=== PATIENT | female | born 1985 | race Caucasian/White ===

== ENCOUNTER 2022-05-21 06:39 | Inpatient (IN) | payer OTHER, SELFPAY ==
[2022-05-21] VITALS (236 sets, daily range): BP systolic 92–142; BP diastolic 28–115; PULSE 66–173; TEMP 36.6–38.1; O2SAT 92–100; BMI 31.8
--- NOTE | 2022-05-21 06:44 | P.HP_ITS ---
H&P: HPI History of Present Illness Date/Time: 05/21/22 06:44 Chief Complaint: term with mildly elevated blood pressure Narrative: 36-year-old multiparous and r39 weeks gestation for induction of labor secondary to increased blood pressure she had an GTT but did not a 3 that was followed with Normal 1 sugars which were. [facility] Family History Family History Father Acute myocardial infarction Mother Asthma Social History Social History Substance use: never Spiritual care concerns: No Meds Home Medications and Allergies Home Medications Medication Instructions Recorded Confirmed Type No Home Medications 05/01/22 05/01/22 History Allergies Allergy/AdvReac Type Severity Reaction Status Date / Time latex Allergy Swelling Verified 05/01/22 15:12 Exam Const: General: cooperative, healthy appearing and comfortable Nutritional Appearance: average body habitus Orientation/consciousness: oriented to person, oriented to place and oriented to time HENMT: Head: normal to inspection Resp: Effort & Inspection: normal respiratory effort Cardio: Rate: regular rate Rhythm: regular rhythm Heart sounds: S1 normal heart sound present and S2 normal heart sound present GI: Inspection: normal to inspection ( gravid soft uterus) : Speculum Exam - Cervix: normal appearance of the cervix ( cervix 3/ 50/-1. FHTs reassuring) Assessment and Plan Assessment and plan (1) Term : Code(s): Z34.90 - Encounter for supervision of normal , unspecified, unspecified trimester Status: Acute Plan medical induction of labor. Spontaneous vaginal delivery expected. She has an epidural candidate
--- NOTE | 2022-05-21 07:27 | LDADM ---
This patient, Rema Devine [facility], was admitted to Labor/Delivery/Recovery 108 on 05/21/22 at 06:39. Plans for labor, pain management and were discussed with patient. Patient/family oriented to hospital policies and general routines including ID bracelet, bed and alarms, visiting hours, pain management, procedures, bathroom and other care routines, personal items, smoking policy, room service/diet and guest tray routines, infant security routines, and visiting hours. Patient/Family are encouraged to report perceived risks to care and to ask questions if they do not understand what they are told or what they should do. See OBIX for further documentation.
[2022-05-21 07:40] LABS: Basophils Absolute Auto 0.1 K/mm3 (0.0-0.1); Basophils Percent Auto 0.7 % (0.2-1.2); Eosinophils Absolute Auto 0.2 K/mm3 (0-0.3); Eosinophils Percent Auto 1.8 % (0-4.4); Hematocrit 31.1 % (37.0-47.0); Hemoglobin 9.7 g/dL (12.0-15.0); Immature Granulocyte Absolute 0.07 K/mm3 (0.00-0.031); Immature Granulocyte Percent A 0.9 % (0-0.5); Lymphocytes Absolute Auto 1.78 K/mm3 (0.9-3.2); Lymphocytes Percent Auto 21.8 % (18.3-44.2); Mean Corpuscular HGB Conc 31.2 g/dl (32-36); Mean Corpuscular Hemoglobin 23.8 pg (26-34); Mean Corpuscular Volume 76.4 fl (80-100); Mean Platelet Volume 12.3 fl (7.4-10.4); Monocytes Absolute Auto 0.5 K/mm3 (0.1-0.6); Monocytes Percent Auto 6.2 % (2.6-8.5); Neutrophils Absolute Auto 5.6 K/mm3 (1.3-6.7); Neutrophils Percent Auto 68.6 % (45.5-73.1); Platelet Count Result 181 k/mm3 (150-375); Red Blood Count 4.07 M/mm3 (4.2-5.4); Red Cell Distribution Width 15.1 % (11.5-14.5); White Blood Count 8.2 K/mm3 (4.5-10.0)
[2022-05-21 07:51] LABS: Alanine Aminotransferase 19 U/L (6-35); Albumin Level 3.6 g/dL (3.5-5.1); Alkaline Phosphatase 260 U/L (38-126); Anion Gap 9 mmol/L (8-16); Aspartate Amino Transferase 19 U/L (14-36); Bilirubin,Total 0.5 mg/dL (0.2-1.3); Blood Urea Nitrogen 4 mg/dL (7-17); Calcium 8.5 mg/dL (8.4-10.2); Carbon Dioxide 21 mmol/L (22-30); Chloride 104 mmol/L (98-107); Estimated CRCL calculation 126 ml/min; Estimated Glomerular Filt Rate > 60; Glucose 95 mg/dL (65-110); Potassium 3.7 mmol/L (3.4-5.0); Sodium 134 mmol/L (137-145)
[2022-05-21 07:52] LABS: Uric Acid 3.5 mg/dL (2.5-7.5)
[2022-05-21] MEDS: OXYTOCIN 30 UNITS/NS 500 ML 30 UNITS/500 ML BAG IV CONT (09:00)
[2022-05-21] MEDS: LACTATED RINGERS 1,000 ML 125 ML IV CONT ×4 (09:01→22:35)
[2022-05-21] MEDS: SODIUM CHLORIDE 0.9% IV 300 ML 600 ML I-UTERINE (12:25)
--- NOTE | 2022-05-21 12:53 | PM.OBPNLAB ---
Pain Control Date/time seen: 05/21/22 12:53 Pain control: tolerating well and epidural Pelvic Exam Dilation (cm): 4 Effacement (%): 50 station: -2 Amniotic membrane status: Leaking Contractions Monitor mode: Internal
[2022-05-21 13:28] LABS: Rapid Plasma Reagin Non-Reactive (NonReactive)
--- NOTE | 2022-05-21 16:09 | PM.OBPNLAB ---
Pain Control Date/time seen: 05/21/22 16:09 Pain control: tolerating well and epidural Pelvic Exam Dilation (cm): 5 Effacement (%): 60 station: -2 Amniotic membrane status: Leaking Contractions Monitor mode: Internal
[2022-05-21] MEDS: SODIUM CHLORIDE 0.9% IV 1,000 ML 150 ML I-UTERINE (21:00)
[2022-05-22] VITALS (204 sets, daily range): BP systolic 64–146; BP diastolic 47–111; PULSE 65–142; RESP 13–21; TEMP 36.3–38.1; O2SAT 93–100
[2022-05-22] MEDS: AMPICILLIN 2 GM/NS 100 ML 2 GM/100 ML BAG IVPB (00:35)
[2022-05-22] MEDS: AMPICILLIN 1 GM/NS 50 ML 1 GM/50 ML BAG IVPB ×2 (05:03→08:24)
--- NOTE | 2022-05-22 05:25 | PM.OBPNLAB ---
Pain Control Date/time seen: 05/22/22 05:25 Pain control: tolerating well and epidural Pelvic Exam Dilation (cm): 10 Effacement (%): 100 station: -1 Amniotic membrane status: Leaking Contractions Monitor mode: Internal
[2022-05-22] MEDS: LACTATED RINGERS 1,000 ML 125 ML IV CONT (08:28)
[2022-05-22] MEDS: ONDANSETRON INJ 4 MG/2 ML VIAL IV PUSH (08:57)
--- NOTE | 2022-05-22 09:49 | P.PNAN_ITS ---
Anes - Initial Pre Proc Eval Procedure: Operation Date: 05/22/22 10:00 Proposed Procedures p Section - Raphael Mantilla MD Date/Time: 05/22/22 09:49 Surgeon: Raphael Mantilla MD Pre Op Diagnosis: IOL Patient Data Age: 36 Gender: F Height: 1.57 m Weight: 79 kg Last Vital Signs Temp 37.7 C H 05/22/22 09:00 Pulse 82 05/22/22 09:45 BP 131/74 05/22/22 09:45 Pulse Ox 99 05/22/22 09:47 O2 Del Method Room Air 05/21/22 07:26 Allergies Allergy/AdvReac Type Severity Reaction Status Date / Time latex Allergy Hives Verified 05/21/22 07:33 Home Medications Medication Instructions Recorded Confirmed Type No Home Medications 05/01/22 05/21/22 History Laboratory Tests 05/21/22 07:05 RPR Non-reactive (NonReactive) Patient hx anesthesia problems: none Family hx anesthesia problems: none Results Review: All pre-operative results and documents have been reviewed as part of the pre- operative evaluation. [facility] Surgical History Surgical History (Updated 05/22/22 @ 09:49 by Raphael Mike MD) History of cholecystectomy Family History Family History Father Acute myocardial infarction Mother Asthma Social History Social History Smoking status: Never smoker Second hand tobacco smoke exposure: No Substance use: never Lack of Transportation: No Lack of Food: Never True Current Housing: I Have Housing Concerned About Future Housing: No Difficulty Paying Gas/Electric Bills: No Difficulty Paying for Meds: No Currently Unemployed: No Education: Associate Degree Difficulty w/ Childcare or Family Care: No Spiritual care concerns: No Anes - Eval Final PreProcedure Day of Procedure 05/22/22 09:49 Patient weight: obese Heart: regular rate and rhythm Lungs: clear to auscultation Airway: Mallampati scale class II Neurological: alert and oriented Last oral intake: >/= 8 hours ASA classification: II Emergent: no Anesthetic plan: proceed Anesthesia type and monitoring: regional epidural and standard monitoring Results Review: All pre-operative results and documents have been reviewed as part of the pre- operative evaluation. Informed Consent: The patient's anesthetic plan and its attendant risks and benefits were discussed with the patient/family/POA. Questions were solicited and answers provided to the satisfaction of the patient/family/POA.
--- NOTE | 2022-05-22 10:04 | WPDHPUPDATE1 ---
History and Physical Update Update Date/Time: 05/22/22 10:04 History and Physical has been reviewed, including an updated exam of the patient. There are NO changes in the patient's condition. Risks, benefits, and alternatives have been discussed and questions answered. Patient agrees to proceed with procedure.
--- NOTE | 2022-05-22 10:05 | WPDHPUPDATE1 ---
History and Physical Update Update Date/Time: 05/22/22 10:05 History and Physical has been reviewed, including an updated exam of the patient. There are NO changes in the patient's condition. Risks, benefits, and alternatives have been discussed and questions answered. Patient agrees to proceed with procedure.
[2022-05-22] MEDS: ceFAZolin 2 GM/D5W 50 ML 2 GM/50 ML BAG IVPB (10:07)
--- NOTE | 2022-05-22 10:47 | W.PM.PROC2 ---
Procedure Note - Detailed Date of Procedure 05/22/22 Pre-op Diagnosis IOL Failure to progress /gestational hypertension Post-op Diagnosis Same Procedure Performed primary low-transverse section Surgeon Raphael Mantilla MD Anesthesia Epidural Indications is the 36-year-old multiparous patient admitted for induction of labor at term secondary to elevated blood pressures. At 8cm had thick meconium fluid baby did not tolerate labor well and could not progress beyond 8cm she was offered low-transverse section Findings male infant of 7lb 13oz Apgars 8 and 8 Description of Procedure patient was prepped draped in sterile fashion placed in supine position. Under excellent epidural anesthesia the eye was entered in Pfannenstiel fashion progressive layers of fascia. Fascia incised midline carried in upward outward fashion bilaterally. Underlying muscles sharply dissected parietal peritoneum entered by Silvia clamps. This was carried superiorly and inferiorly dome of bladder. Bladder blade placed bladder flap formed bladder blade returned. A low-transverse incision made head delivered the ANANDA position. Nuchal cord checked noted be loose x1 read [place] occiput. Anterior posterior shoulder delivered spontaneously. Cord clamped x2 and cut infant passed off the table with a good cry and given Apgars of 8 [id number] and 8 [id number]. Cord blood was drawn. Placenta delivered intact manually. Uterus delivered from the abdomen after assuring no membranes or debris remained in the uterus. The uterus was closed with continuous running 0 Vicryl from lateral edge to lateral edge. This was followed by a 2nd imbricating running locking 0 Vicryl from lateral edge to lateral edge. Hemostasis was assured. The ovaries and tubes appeared within normal limits. A small 1cm fibroid was at the fundus on the left. The uterus returned the abdomen. The abdomen cleaned of debris and laps removed and accounted for. Uterine incision inspected 1 last time noted be hemostatic. The incision of the fascia was closed with continuous running 0 Vicryl from lateral edge to midline bilaterally. Irrigation subcutaneous layer the skin closed with 4-0 Monocryl and glue. The patient tolerated procedure well and went to recovery in satisfactory condition. All sponge, needle, instrument counts were correct. There were no immediate complications noted Estimated Blood Loss 450 Drains No Packing No Pathology None sent Complications No immediate complications Condition Stable Disposition PACU
[2022-05-22] MEDS: fentaNYL CITRATE INJ (*CRX) 100 MCG/2 ML VIAL 25 MCG IV PUSH (11:35)
[2022-05-22] MEDS: KETOROLAC 30 MG/ML VIAL (*BKC) IV PUSH (12:58)
[2022-05-22] MEDS: SIMETHICONE 80 MG TAB.CHEW PO ×3 (13:40→19:45)
[2022-05-22] MEDS: HYDROcodone/acetaminophen (*CRX) 10-325 MG TABLET 1 TAB PO ×2 (14:50→19:45)
[2022-05-22] MEDS: DEXTROSE 5%/0.45% SOD CHL 1,000 ML 125 ML IV CONT (15:42)
--- NOTE | 2022-05-22 16:34 | OBPPTRN ---
1318-Patient transferred to post room #285 via wheelchair. Support person present. Oriented to unit, room, information board, rooming in, admission packet and security measures. Patient verbalizes understanding.
--- NOTE | 2022-05-22 16:37 | PM.DS ---
DS: Admitting Diagnosis Discharge Date 05/24/2022 Admitting Diagnosis Term /gestational hypertension / anemia DS: Discharge Diagnosis Discharge Diagnosis (1) Term : Code(s): Z34.90 - Encounter for supervision of normal , unspecified, unspecified trimester Status: Acute (2) Gestational hypertension: Code(s): O13.9 - Gestational [-induced] hypertension without significant proteinuria, unspecified trimester Status: Acute (3) Anemia: Code(s): D64.9 - Anemia, unspecified Status: Acute DS: Summary Hospital Course Reason for hospitalization: Patient was admitted for induction of labor at term secondary to elevated blood pressures Hospital Course: Patient underwent an extended induction of labor which could result in section secondary to failure to progress. Her hospital course thereafter was unremarkable. She remained afebrile. She was up, ambulating, eating regular diet, voiding without difficulty, in general without complaints. the patient did receive 2 3units of blood. Hemoglobin was 7 9 postop day 2 she was up, voiding without difficulty complaints hemostat dynamically stable Time Spent with Patient Time attestation: Total time spent providing and/or coordinating discharge services: Exam Const: General: cooperative, healthy appearing, comfortable and well groomed Orientation/consciousness: oriented to person, oriented to place and oriented to time Resp: Effort & Inspection: normal respiratory effort Cardio: Rate: regular rate Rhythm: regular rhythm Heart sounds: S1 normal heart sound present and S2 normal heart sound present GI: Inspection: normal to inspection (Fundus firm below the umbilicus) and incision (Wound is clean drain intact) Auscultation: normal bowel sounds Discharge Plan Discharge Attending physician on discharge: Raphael Hagan Discharging Clinician: Raphael Hagan Patient Disposition: Home, Self-Care Activity: may shower, no straining and pelvic rest Diet: heart healthy Wound Care Instructions: follow printed instructions Patient Instructions: Antibiotic Form Stand Alone Forms: General Discharge Information Follow-up/Referrals: Raphael Hagan MD [Physician] - Discharge Medications: New hydrocodone-acetaminophen 5-325 mg tablet 1 tablet PO Q4H PRN (Reason: pain) Qty: 30 0RF Date of admission: 05/21/22 06:39 Primary Care Provider: AtiyaLuna Admitting Provider: Raphael Hagan Attending physician on admission: Raphael Hagan Condition: Stable
[2022-05-22] MEDS: SIMETHICONE 80 MG TAB.CHEW (17:23)
[2022-05-22] MEDS: DOCUSATE SODIUM 100 MG CAPSULE PO (17:23)
[2022-05-22] MEDS: POLYSACCHARIDE IRON COMPLEX 150 MG CAPSULE PO (17:24)
[2022-05-23] VITALS (17 sets, daily range): BP systolic 93–137; BP diastolic 53–99; PULSE 77–130; RESP 16–22; TEMP 36–37.2; O2SAT 80–100
[2022-05-23] MEDS: KETOROLAC 30 MG/ML VIAL (*BKC) IV PUSH (02:05)
[2022-05-23 05:41] LABS: Basophils Percent Auto 0.2 % (0.2-1.2); Eosinophils Percent Auto 0.4 % (0-4.4); Immature Granulocyte Absolute 0.04 K/mm3 (0.00-0.031); Immature Granulocyte Percent A 0.4 % (0-0.5); Lymphocytes Absolute Auto 1.18 K/mm3 (0.9-3.2); Lymphocytes Percent Auto 11.9 % (18.3-44.2); Mean Corpuscular HGB Conc 30.7 g/dl (32-36); Mean Corpuscular Hemoglobin 23.3 pg (26-34); Mean Corpuscular Volume 75.8 fl (80-100); Mean Platelet Volume 11.5 fl (7.4-10.4); Monocytes Absolute Auto 0.5 K/mm3 (0.1-0.6); Monocytes Percent Auto 5.1 % (2.6-8.5); Neutrophils Absolute Auto 8.1 K/mm3 (1.3-6.7); Platelet Count Result 154 k/mm3 (150-375); Red Blood Count 2.15 M/mm3 (4.2-5.4); Red Cell Distribution Width 15.2 % (11.5-14.5); White Blood Count 9.9 K/mm3 (4.5-10.0)
[2022-05-23 05:48] LABS: Hematocrit 16.3 % (37.0-47.0)
--- NOTE | 2022-05-23 06:09 | PM.OBPNVD ---
OB - PN: Subj Subjective Date/time seen: 05/23/22 06:09 Patient comments: no complaints and pain well controlled baby status: doing well and nursing well OB - PN: Obj Data Labs 05/23/22 04:22 05/21/22 07:06 Labs: Laboratory Results - last 24 hr 05/23/22 04:22 WBC 9.9 RBC 2.15 L Hgb 5.0 L* D Hct 16.3 L* MCV 75.8 L MCH 23.3 L MCHC 30.7 L RDW 15.2 H Plt Count 154 MPV 11.5 H Immature Gran % (Auto) 0.4 Neut % (Auto) 82.0 H Lymph % (Auto) 11.9 L [place] % (Auto) 5.1 Eos % (Auto) 0.4 Baso % (Auto) 0.2 Lymph # (Auto) 1.18 [place] # (Auto) 0.5 Eos # (Auto) 0.0 Baso # (Auto) 0.0 Abs Immat Gran (auto) 0.04 H Absolute Neuts (auto) 8.1 H Absolute Nucleated RBC 0.0 Nucleated RBC % 0.0 OB - PN A/P Plan day: 1 Plan: other ( anemia) Comments: offered patient blood replacement. Time Spent With Patient Time: Total time spent is greater than 50% in coordination of care (as documented) at patient's floor/unit and/or counseling patient: Time with patient: less than 15 minutes Exam Const: General: cooperative, healthy appearing and comfortable Nutritional Appearance: average body habitus Orientation/consciousness: oriented to person, oriented to place and oriented to time HENMT: Head: normal to inspection Resp: Effort & Inspection: normal respiratory effort Cardio: Rate: regular rate Rhythm: regular rhythm Heart sounds: S1 normal heart sound present and S2 normal heart sound present GI: Inspection: normal to inspection ( fundus firm below umbilicus) and incision ( wound clean dry and intact)
[2022-05-23] MEDS: DOCUSATE SODIUM 100 MG CAPSULE PO ×2 (06:53→17:34)
[2022-05-23] MEDS: SIMETHICONE 80 MG TAB.CHEW PO (06:53)
[2022-05-23] MEDS: HYDROcodone/acetaminophen (*CRX) 10-325 MG TABLET 1 TAB PO ×2 (06:54→11:37)
[2022-05-23] MEDS: POLYSACCHARIDE IRON COMPLEX 150 MG CAPSULE PO ×2 (06:54→17:34)
[2022-05-23] MEDS: MULTIVIT/MIN/PREN/FOL AC/IRON TABLET 1 TAB PO (06:54)
--- NOTE | 2022-05-23 08:20 | WPDANLDPN2 ---
Anes-Prog Note L&D Date/Time: 05/23/22 08:20 Comfortable throughout: labor and section Neuraxial method: epidural Epidural/Spinal procedure site: clean & non-tender Neuro status: Neuro function grossly intact. Cardiovascular status: normal Respiratory status: normal Airway patency: baseline Mental status: baseline Post-Op hydration status: normal Vital Signs: Last Vital Signs Temp 36.4 C 05/23/22 04:30 Pulse 107 H 05/23/22 04:30 Resp 16 05/23/22 04:30 BP 110/63 05/23/22 04:30 Pulse Ox 100 05/23/22 04:30 O2 Del Method Room Air 05/23/22 04:30 Pain score (VAS): 0 I/O: Intake & Output 05/22/22 05/23/22 05/23/22 23:59 07:59 15:59 Intake Total 2040 1200 Output Total 550 1100 Balance 1490 100 Patient feedback: Patient satisfied with anesthetic care.
--- NOTE | 2022-05-23 08:20 | WPDANLDNPN2 ---
Anes-Prog Note L&D-Neuraxial Date/Time: 05/23/22 08:20 Patient feedback: Patient satisfied with post-operative pain management.
[2022-05-23] MEDS: SODIUM CHLORIDE 0.9% IV 250 ML 30 ML IV CONT (08:37)
[2022-05-23] MEDS: IBUPROFEN 600 MG TABLET PO ×3 (08:44→21:23)
[2022-05-23] MEDS: HYDROcodone/acetaminophen (*CRX) 5-325 MG TABLET 1 TAB PO ×3 (14:42→21:25)
--- NOTE | 2022-05-23 15:20 | PC.NURSE ---
Pt passed a 142 cc clot in the BSC when she got up to urinate. No c/o dizziness. Pt states she feels better this afternoon.
--- NOTE | 2022-05-23 16:31 | PC.NURSE ---
[id number] Introductions were made, then consulted with patient to assess needs related to . Mother discussed how the feeding has been going stating she is combo feeding along with her past history with her other children and the supplementation that has been chosen and why so far. Resources provided for inpatient and outpatient services with the feeding sheet, mom/baby guide and name written on the white board. Mother voiced understanding of information and is willing to receive assistance for at this time. Mother is happy with how well this infant is doing which is better than the last two. Reviewed the importance of skin to skin, stimulating infant with massage touch, burping, checking the diaper and possibly hand expression to encourage to wake and breastfeed. Infant optimally latched to the left breast using football positioning and effectively breast fed for 8-10 minutes, then was placed to the right breast after a moment of upright skin to skin and feeding cues were visualized. latched optimally for a few minutes, then fell asleep and would not latch again. While infant is skin to skin we discussed protecting the milk supply with pumping if her infant receives bottles and doesn't breastfeed. Reviewed the risks and benefits of supplementing related to the possibility of delayed milk related to her blood loss requiring a blood transfusion after her primary section. Encouraged skin to skin, stimulating infant if doesn't wake to breastfeed if it has been 2-2.5 hours, to call if infant will not wake to breastfeed or if there's pain with the latch. Reminded mother to pump at least 8 times in 24 hours 1-2 times at night to protect the milk supply if is not balancing it with self care to rest, eat/drink well asking for assistance as needed. Mother voiced understanding of information, when and how to call for assistance if needed.
[2022-05-24] MEDS: IBUPROFEN 600 MG TABLET PO (04:50)
[2022-05-24 05:21] LABS: Basophils Absolute Auto 0.1 K/mm3 (0.0-0.1); Basophils Percent Auto 0.6 % (0.2-1.2); Eosinophils Absolute Auto 0.3 K/mm3 (0-0.3); Eosinophils Percent Auto 2.3 % (0-4.4); Hematocrit 23.9 % (37.0-47.0); Hemoglobin 7.9 g/dL (12.0-15.0); Immature Granulocyte Absolute 0.09 K/mm3 (0.00-0.031); Immature Granulocyte Percent A 0.8 % (0-0.5); Lymphocytes Absolute Auto 1.52 K/mm3 (0.9-3.2); Lymphocytes Percent Auto 14.1 % (18.3-44.2); Mean Corpuscular HGB Conc 33.1 g/dl (32-36); Mean Corpuscular Hemoglobin 26.8 pg (26-34); Mean Platelet Volume 11.6 fl (7.4-10.4); Monocytes Absolute Auto 0.6 K/mm3 (0.1-0.6); Monocytes Percent Auto 5.4 % (2.6-8.5); Neutrophils Absolute Auto 8.3 K/mm3 (1.3-6.7); Neutrophils Percent Auto 76.8 % (45.5-73.1); Platelet Count Result 148 k/mm3 (150-375); Red Blood Count 2.95 M/mm3 (4.2-5.4); Red Cell Distribution Width 15.8 % (11.5-14.5); White Blood Count 10.8 K/mm3 (4.5-10.0)
--- NOTE | 2022-05-24 05:31 | PM.OBPNVD ---
OB - PN: Subj Subjective Date/time seen: 05/24/22 05:31 Patient comments: no complaints and pain well controlled baby status: doing well and nursing well OB - PN: Obj Data Labs 05/24/22 04:46 05/21/22 07:06 Labs: Laboratory Results - last 24 hr 05/21/22 05/23/22 05/24/22 07:05 04:22 04:46 WBC 9.9 10.8 H RBC 2.15 L 2.95 L Hgb 5.0 L* D 7.9 L Hct 16.3 L* 23.9 L MCV 75.8 L 81.0 D MCH 23.3 L 26.8 D MCHC 30.7 L 33.1 RDW 15.2 H 15.8 H Plt Count 154 148 L MPV 11.5 H 11.6 H Immature Gran % (Auto) 0.4 0.8 H Neut % (Auto) 82.0 H 76.8 H Lymph % (Auto) 11.9 L 14.1 L [place] % (Auto) 5.1 5.4 Eos % (Auto) 0.4 2.3 Baso % (Auto) 0.2 0.6 Lymph # (Auto) 1.18 1.52 [place] # (Auto) 0.5 0.6 Eos # (Auto) 0.0 0.3 Baso # (Auto) 0.0 0.1 Abs Immat Gran (auto) 0.04 H 0.09 H Absolute Neuts (auto) 8.1 H 8.3 H Absolute Nucleated RBC 0.0 0.0 Nucleated RBC % 0.0 0.0 % Immature Plt Fraction 9.0 Blood Type O Positive Antibody Screen Negative Crossmatch See Detail OB - PN A/P Plan day: 2 Plan: routine care, discharge home and follow up 6 weeks (4) Comments: hemodynamically stable this morning with hemoglobin of 7 point Time Spent With Patient Time: Total time spent is greater than 50% in coordination of care (as documented) at patient's floor/unit and/or counseling patient: Time with patient: less than 15 minutes Exam Const: General: cooperative, healthy appearing and comfortable Nutritional Appearance: average body habitus Orientation/consciousness: oriented to person, oriented to place and oriented to time HENMT: Head: normal to inspection Resp: Effort & Inspection: normal respiratory effort Cardio: Rate: regular rate Rhythm: regular rhythm Heart sounds: S1 normal heart sound present and S2 normal heart sound present GI: Inspection: normal to inspection and incision ( clean dry and intact)
[2022-05-24 08:05] VITALS: BP 103/70; PULSE 77; RESP 16; TEMP 36.4; O2SAT 99
[2022-05-24] MEDS: POLYSACCHARIDE IRON COMPLEX 150 MG CAPSULE PO (09:10)
[2022-05-24] MEDS: MULTIVIT/MIN/PREN/FOL AC/IRON TABLET 1 TAB PO (09:11)
[2022-05-24] MEDS: DOCUSATE SODIUM 100 MG CAPSULE PO (09:11)
[2022-05-24] MEDS: HYDROcodone/acetaminophen (*CRX) 5-325 MG TABLET 1 TAB PO (09:11)
--- NOTE | 2022-05-24 15:52 | PC.NURSE ---
[id number] Mother led the conversation with her experience and plan to feed her so far and her ability to independently latch optimally without discomfort and she also supplements with formula. Reminded parents to use good handwashing technique to prevent infection. Mother is feeding appropriately for growth of and understands stimulating to eat if needed. has had appropriate feedings in the last 24 hours meets the outcomes for weight, output and jaundice at this time. Mother states she is confident to continue effectively feeding her infant at home, when to call for assistance and denies any additional assistance or education at this time. Mother voiced understanding of the possible delay of her milk coming to full volume and that her experience is going so much better with this than with the last two. Reinforced understanding of milk production, transition of milk, signs of adequate intake, transition of stool, prevention/relief of engorgement, responsive watching for feeding cues, the different methods of stimulating to breastfeed 2-3 hours after the start of the last feeding, community resources, and when to call a provider using the resource of the mom and baby guide. Mother voiced understanding of the education shared. Reported to the primary RN.
[2022-05-25 09:23] VITALS: BP 119/68; PULSE 76; RESP 18; TEMP 36.8; O2SAT 100
== END 2022-05-24 12:45 | disposition home or self-care (01) | DRG 787 ==
LOC: ANHLDR 05-22 10:09 → ANHOB2 05-22 13:32
PROVIDERS: Admitting Provider Obstetrics & Gynecology; PCP Physician Assistant; Visit Provider Obstetrics & Gynecology
PROC: 10D00Z1 Extraction of Products of Conception, Low, Open Approach (ICD-10-PCS; CPT 59514; principal; 2022-05-22 10:00)
DX: O13.4 Gestational [pregnancy-induced] hypertension without significant proteinuria, complicating childbirth (principal); O75.2 Pyrexia during labor, not elsewhere classified; O62.2 Other uterine inertia; O77.0 Labor and delivery complicated by meconium in amniotic fluid; O69.81X0 Labor and delivery complicated by cord around neck, without compression, not applicable or unspecified; O99.02 Anemia complicating childbirth; Z3A.40 40 weeks gestation of pregnancy; Z37.0 Single live birth; Z90.49 Acquired absence of other specified parts of digestive tract
CPT/HCPCS: 36415; 36430; 80053; 84550; 85025; 85055; 86592; 86850; 86900; 86901; 86923; A9270; J0131; J0290; J0456; J0690; J1885; J2274; J2370; J2405; J2590; J2795; J3010; J7030; J7050; J7120; P9016

== ENCOUNTER 2022-06-14 23:09 | Emergency (ER) | payer OTHER, SELFPAY ==
--- NOTE | ~2022-06-14 | CT_ITS ---
EXAMINATION: CT abdomen pelvis w con INDICATION: Vaginal bleeding and pelvic pain, three weeks TECHNIQUE: Computed tomographic images of the abdomen and pelvis were obtained after the administrati on of 100 cc of Omnipaque 350 intravenous contrast. The dose-length product (DLP) was 532.12 mGy-cm. Automated exposure control and iterative reconstruction technique were employed. COMPARISON: None available FINDINGS: Minimal dependent atelectasis is present in the lung bases. The heart size is normal. The g allbladder is surgically absent. The liver, spleen, pancreas, and adrenal glands are normal. 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 Cysts of the kidneys measure up to 8 mm on the right. No pa thologically enlarged abdominal or pelvic lymph nodes are identified. No free intraperitoneal gas or evidence of bowel obstruction. The appendix is normal. Changes of recent section are noted. There is hyperattenuating material in the endometrial canal. There is a 12 mm area of enhancement in the lower aspect of the uterus on the right near the section defect. There is a small amount of mildly hyperattenuating fluid situated between the uterus and bladder near the section d efect. IMPRESSION: 1. 12 mm area of enhancement at the right lateral margin of the section defect with hyperatt enuating fluid in the endometrium and anterior to the uterus. Finding could reflect a small pseudoane urysm. Follow-up CTA has been completed at the time of interpretation. 2. 1.4 cm splenic artery aneurysm. Reviewed, dictated and finalized at location A. IMPRESSION: 1. 12 mm area of enhancement at the right lateral margin of the sectio n defect with hyperattenuating fluid in the endometrium and anterior to the morelia jimmie. 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 Follow-up CTA has been compl eted at the time of interpretation. 2. 1.4 cm splenic artery aneurysm.
--- NOTE | ~2022-06-14 | CT_ITS ---
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 Maximum intensity projection 3D-reconstructions of the aorta and other arteries were constructed by the technologist on a separate workstation. The dose-length produ ct (DLP) was 493.00 mGy-cm. Automated exposure control and iterative reconstruction technique were em ployed. 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 There is no aneurysm or dissection of the abdominal aorta. The superior mesenteric artery and inferi or mesenteric artery are normal at their origin. 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 There are single renal arteries bilaterally. 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 Minimal dependent atelectasis is present in the lung bases. The heart size is normal. The liver, sple en, pancreas, and adrenal glands are normal. The gallbladder is surgically absent. Cysts of the kidne ys measure up to 8 mm on the right. No pathologically enlarged abdominal or pelvic lymph nodes are id entified. No free intraperitoneal gas or evidence of bowel obstruction. A small amount of hyperattenu ating material is again noted in the endometrial canal and situated between the section defe ct and urinary bladder. There is a small amount of inflammatory change in the pelvis. IMPRESSION: 1. 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 2. 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 Reviewed, dictated and finalized at location A. IMPRESSION: 1. 12 mm pseudoaneurysm at the right lateral margin of the section def ect. 2. 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
[2022-06-14 23:11] VITALS: BP 124/74; PULSE 75; RESP 17; TEMP 36.5; O2SAT 100
--- NOTE | 2022-06-14 23:55 | ED.FEMALEGU ---
HPI - Female Genitourinary General Chief complaint: Vaginal Bleeding Stated complaint: vaginal bleeding Time Seen by Provider: 06/14/22 23:24 History of Present Illness HPI Narrative: Patient is a 36-year-old at 4 weeks presenting with vaginal bleeding. Patient states that she had a approximately 3-1/2 to 4 weeks ago. States that she did experience a hemorrhage and required blood transfusions while in the hospital. States that she has had some intermittent vaginal bleeding over the last 4 weeks but tonight she suddenly had a large gush of blood that filled the toilet bowl. States that she has had some worsening pelvic cramping as well. States that her [employer]IST[employer] was unable to get her in until Friday. She denies lightheadedness, chest pain, shortness of breath, nausea or vomiting, lower back pain. Related Data Allergies Allergy/AdvReac Type Severity Reaction Status Date / Time latex Allergy Hives Verified 06/15/22 00:00 Review of Systems Review of Systems: All systems reviewed & are unremarkable except as noted in HPI and below PMFSH Surgical History Surgical History History of cholecystectomy Family History Family History Father Acute myocardial infarction Mother Asthma Social History Social History Smoking status: Never smoker Second hand tobacco smoke exposure: No Substance use: never Lack of Transportation: No Lack of Food: Never True Current Housing: I Have Housing Concerned About Future Housing: No Difficulty Paying Gas/Electric Bills: No Difficulty Paying for Meds: No Currently Unemployed: No Education: Associate Degree Difficulty w/ Childcare or Family Care: No Spiritual care concerns: No Exam Narrative: GENERAL: Well-appearing, well-nourished, and in no acute distress. HEAD: Normocephalic, atraumatic. EYES: PERRLA and EOMI. ENT: Nares clear, no rhinorrhea or epistaxis. Mucous membranes moist. NECK: Supple. CHEST: Clear to auscultation. No respiratory distress. HEART: Regular rate and rhythm. Normal peripheral pulses. ABDOMEN: Soft, + left lower quadrant and suprapubic tenderness, no guarding or rebound EXTREMITIES: Normal range of motion. No edema. SKIN: Warm, dry, no rash. NEURO: No focal deficits. Alert and oriented x3. PSYCH: Normal mood and affect. Course Vital Signs Vital signs: Vital Signs Temperature 97.7 F 06/14/22 23:11 Pulse Rate 75 06/14/22 23:11 Respiratory Rate 17 06/14/22 23:11 Blood Pressure 124/74 06/14/22 23:11 Pulse Oximetry 100 06/14/22 23:11 Oxygen Delivery Room Air 06/14/22 23:11 Temperature 97.7 F 06/14/22 23:11 Pulse Rate 72 06/15/22 07:29 Respiratory Rate 18 06/15/22 07:29 Blood Pressure 118/73 06/15/22 07:29 Pulse Oximetry 98 06/15/22 07:29 Oxygen Delivery Room Air 06/14/22 23:11 MDM - Female Genitourinary MDM Narrative Medical decision making narrative: Patient is a 36-year-old female presenting with vaginal bleeding in the setting. Vitals are within normal limits. Patient is nontoxic and in no acute distress. Exam is remarkable for the above. Plan for blood work, CT abdomen pelvis. Hemoglobin is stable at 10.4. CT abdomen pelvis is concerning for a pseudoaneurysm involving the uterine artery. I spoke with Dr. Romo who agrees with obtaining a CTA to better evaluate the pelvic arteries. 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 I spoke with Dr. Gomez with [facility] and she has accepted the patient for transfer. Patient has remained hemodynamically stable while in the department. Spoke with the patient and her regarding the work-up and they are agreeable with transfer. Differential Diagnosis Differential diagnosi
[2022-06-14 23:56] VITALS: PULSE 73; RESP 15
[2022-06-14 23:57] VITALS: BP 122/82; PULSE 71; RESP 12
[2022-06-15] VITALS (17 sets, daily range): BP systolic 91–124; BP diastolic 53–91; PULSE 70–98; RESP 11–20; O2SAT 98–100
[2022-06-15 00:13] LABS: Basophils Absolute Auto 0.1 K/mm3 (0.0-0.1); Basophils Percent Auto 1.5 % (0.2-1.2); Eosinophils Absolute Auto 0.3 K/mm3 (0-0.3); Eosinophils Percent Auto 4.7 % (0-4.4); Hematocrit 33.1 % (37.0-47.0); Hemoglobin 10.4 g/dL (12.0-15.0); Immature Granulocyte Absolute 0.02 K/mm3 (0.00-0.031); Immature Granulocyte Percent A 0.4 % (0-0.5); Lymphocytes Absolute Auto 1.78 K/mm3 (0.9-3.2); Lymphocytes Percent Auto 33.1 % (18.3-44.2); Mean Corpuscular HGB Conc 31.4 g/dl (32-36); Mean Corpuscular Hemoglobin 26.1 pg (26-34); Mean Platelet Volume 10.2 fl (7.4-10.4); Monocytes Absolute Auto 0.4 K/mm3 (0.1-0.6); Monocytes Percent Auto 6.9 % (2.6-8.5); Neutrophils Absolute Auto 2.9 K/mm3 (1.3-6.7); Neutrophils Percent Auto 53.4 % (45.5-73.1); Platelet Count Result 246 k/mm3 (150-375); Red Blood Count 3.99 M/mm3 (4.2-5.4); Red Cell Distribution Width 15.9 % (11.5-14.5); White Blood Count 5.4 K/mm3 (4.5-10.0)
[2022-06-15 00:16] LABS: INR 1.1; Prothrombin Time 14.1 Seconds (11.1-14.7)
[2022-06-15 04:32] LABS: Anion Gap 5 mmol/L (8-16); Blood Urea Nitrogen 11 mg/dL (7-17); Calcium 8.5 mg/dL (8.4-10.2); Carbon Dioxide 29 mmol/L (22-30); Chloride 104 mmol/L (98-107); Estimated CRCL calculation 121 ml/min; Estimated Glomerular Filt Rate > 60; Glucose 93 mg/dL (65-110); Potassium 3.9 mmol/L (3.4-5.0); Sodium 138 mmol/L (137-145)
--- NOTE | 2022-06-15 08:11 | PC.NURSE ---
Ana Mata accepted ALS transfer to [facility] Rm#[id number]
== END 2022-06-15 09:44 | disposition short-term general hospital (02) ==
LOC: ANHED 23:39
PROVIDERS: Emergency Provider Emergency Medicine; PCP Physician Assistant
DX: O72.2 Delayed and secondary postpartum hemorrhage (principal); O99.43 Diseases of the circulatory system complicating the puerperium; T81.718A Complication of other artery following a procedure, not elsewhere classified, initial encounter; I72.8 Aneurysm of other specified arteries; Y83.8 Other surgical procedures as the cause of abnormal reaction of the patient, or of later complication, without mention of misadventure at the time of the procedure
CPT/HCPCS: 36415; 74174; 74177; 80048; 85025; 85610; 85730; 86850; 86900; 86901; 99284; 99285; Q9967